=== PATIENT | female | born 1950 | race Caucasian/White ===

== ENCOUNTER 2022-08-26 06:26 | Day surgery (SDC) | payer MEDICARE ==
[2022-08-26] MEDS ORDERED: Sodium Chloride 0.9% 1,000 ML IV SCH (07:00)
[2022-08-26] MEDS ORDERED: Propofol 200 MG/20 ML SDV ONE ×2 (07:11→07:39)
[2022-08-26] MEDS ORDERED: fentaNYL 100 MCG/2 ML SDV ONE (07:11)
[2022-08-26] MEDS ORDERED: Citric Acid/Simethicone/Sodium Bicarbonate Granules 4 GM Packet PO ONE (11:24)
[2022-08-26] MEDS ORDERED: Barium Sulfate 98% Powder for Susp 340 GM Bottle PO PRN (11:24)
== END 2022-08-26 13:30 | disposition home or self-care (01) ==
LOC: JP.SDS 06:26
PROVIDERS: ATTEND Internal Medicine
DX: K59.89 Other specified functional intestinal disorders (principal); R10.9 Unspecified abdominal pain; K21.9 Gastro-esophageal reflux disease without esophagitis; Z87.19 Personal history of other diseases of the digestive system; Z91.041 Radiographic dye allergy status; Z88.8 Allergy status to other drugs, medicaments and biological substances
CPT/HCPCS: 45378; 74246; 74248; J2704; J3010; J7030

== ENCOUNTER 2022-09-30 08:51 | Inpatient (IN) | payer MEDICARE ==
[2022-09-30] MEDS ORDERED: fentaNYL 250 MCG/5 ML SDV ONE (08:52)
[2022-09-30] MEDS ORDERED: Glycopyrrolate 0.2 MG/ML 5 ML MDV ONE (08:52)
[2022-09-30] MEDS ORDERED: Dexamethasone 4 MG/ML SDV ONE (08:52)
[2022-09-30] MEDS ORDERED: Ondansetron 4 MG/2 ML SDV ONE (08:52)
[2022-09-30] MEDS ORDERED: Rocuronium 50 MG/5 ML Vial ONE (08:52)
[2022-09-30] MEDS ORDERED: Propofol 200 MG/20 ML SDV ONE (08:52)
[2022-09-30] MEDS ORDERED: Neostigmine Methylsulfate 1 MG/ML 5 ML Syringe ONE (08:52)
[2022-09-30] MEDS ORDERED: Naloxone 0.4 MG/ML SDV IVPUSH PRN (09:00)
[2022-09-30] MEDS ORDERED: fentaNYL 1,250 MCG in Sodium Chloride 0.9% 225 ML EPIDUR SCH (09:00)
[2022-09-30] MEDS ORDERED: Scopolamine 1.5 MG Transdermal Patch TOP SCH (09:15)
[2022-09-30] MEDS ORDERED: Dextrose 5%-Lactated Ringers 1,000 ML IV SCH ×2 (10:00→13:30)
[2022-09-30] MEDS ORDERED: Ketamine 500 MG/5 ML MDV IV SCH (10:30)
[2022-09-30] MEDS ORDERED: cefOXitin 2 GM in Sodium Chloride 0.9% 50 ML IV ONE (10:30)
[2022-09-30] MEDS ORDERED: Ketamine 16 MG in Sodium Chloride 0.9% 19.84 ML IV SCH (10:30)
[2022-09-30] MEDS ORDERED: Meropenem 500 MG SDV IRR ONE (11:24)
[2022-09-30] MEDS ORDERED: Linezolid 600 MG/300 ML Premix Bag IRR ONE (11:25)
[2022-09-30] MEDS ORDERED: Lactated Ringers 1,000 ML ONE (12:02)
[2022-09-30] MEDS ORDERED: Cyclobenzaprine 10 MG Tab PO PRN (13:35)
[2022-09-30] MEDS ORDERED: Pantoprazole 40 MG Vial IVPUSH SCH ×2 (13:45→16:00)
[2022-09-30] MEDS ORDERED: Meperidine PF 100 MG/ML Syringe IM ONE (13:49)
[2022-09-30] MEDS ORDERED: Acetaminophen 500 MG Tab PO PRN (14:00)
[2022-09-30] MEDS ORDERED: diphenhydrAMINE 50 MG/ML SDV IVPUSH PRN ×3 (14:00)
[2022-09-30] MEDS ORDERED: Labetalol 20 MG/4 ML Syringe IVPUSH PRN (14:00)
[2022-09-30] MEDS: hydrOXYzine HCl 50 MG/ML SDV IM PRN (15:24)
[2022-09-30] MEDS ORDERED: MVI, Adult with Vitamin K 10 ML, Thiamine 200 MG, Zinc/Copper/Manganese/Selenium 1 ML i... IV SCH ×4 (16:00)
[2022-09-30] MEDS ORDERED: fentaNYL 100 MCG/2 ML SDV ONE (17:06)
[2022-09-30] MEDS ORDERED: Sodium Chloride 0.9% 10 ML ONE (17:07)
[2022-09-30] MEDS: cefOXitin 2 GM in Sodium Chloride 0.9% 50 ML IV SCH ×2 (17:08→21:37)
[2022-09-30] MEDS: fentaNYL 2,500 MCG in Sodium Chloride 0.9% 200 ML EPIDUR SCH (17:38)
[2022-09-30] MEDS: Acetaminophen 500 MG Tab PO SCH (19:26)
[2022-09-30] MEDS: Ondansetron 4 MG/2 ML SDV IVPUSH PRN (21:42)
[2022-10-01] MEDS: Naloxone 0.4 MG/ML SDV IV PRN ×2 (00:15→08:15)
[2022-10-01] MEDS: Ondansetron 4 MG/2 ML SDV IVPUSH PRN ×2 (01:12→19:40)
[2022-10-01] MEDS: Metoclopramide 10 MG/2 ML SDV IVPUSH PRN ×2 (02:36→22:43)
[2022-10-01] MEDS ORDERED: Naloxone 0.4 MG/ML SDV IVPUSH ONE (03:02)
[2022-10-01] MEDS: hydrOXYzine HCl 50 MG/ML SDV IM PRN (03:08)
[2022-10-01] MEDS: Acetaminophen 500 MG Tab PO SCH ×4 (03:54→19:39)
[2022-10-01] MEDS: cefOXitin 2 GM in Sodium Chloride 0.9% 50 ML IV SCH ×4 (03:57→21:18)
[2022-10-01] MEDS ORDERED: Dextrose 5%-Lactated Ringers 1,000 ML IV SCH (07:00)
[2022-10-01] MEDS: Docusate Sodium 100 MG Cap PO SCH ×2 (09:07→21:18)
[2022-10-01] MEDS: Bisacodyl 5 MG Tab PO SCH ×2 (09:07→21:18)
[2022-10-01] MEDS: SCOPOLAMINE PATCH CHECK TOP SCH (09:09)
[2022-10-01] MEDS: fentaNYL 2,500 MCG in Sodium Chloride 0.9% 200 ML EPIDUR SCH (13:30)
[2022-10-01] MEDS ORDERED: Pantoprazole 40 MG Tab.CR PO SCH (16:30)
[2022-10-01] MEDS: Naloxone 0.4 MG in Dextrose 5%-Lactated Ringers 1,000 ML IV SCH (18:41)
[2022-10-02] MEDS: Ondansetron 4 MG/2 ML SDV IVPUSH PRN (02:24)
[2022-10-02] MEDS: LORazepam 2 MG/ML SDV IVPUSH PRN ×2 (03:22→21:38)
[2022-10-02] MEDS: Naloxone 0.4 MG in Dextrose 5%-Lactated Ringers 1,000 ML IV SCH ×2 (05:33→14:45)
[2022-10-02] MEDS: Acetaminophen 500 MG Tab PO SCH ×3 (05:58→19:39)
[2022-10-02] MEDS ORDERED: Metoclopramide 10 MG/2 ML SDV IVPUSH SCH (07:00)
[2022-10-02] MEDS ORDERED: Ondansetron 4 MG/2 ML SDV IVPUSH SCH (07:00)
[2022-10-02 07:07] LABS: HEMOGLOBIN 10.2 g/dL (11.2-15.5); MEAN CORPUSCULAR HEMOGLOBIN 31.1 pg (31.6-35.5); MEAN CORPUSCULAR VOLUME 91.5 fL (81.4-99.0); RED BLOOD CELL COUNT 3.28 M/uL (3.77-5.24); WHITE BLOOD CELL COUNT,WBC 10.7 K/uL (3.2-11.0)
[2022-10-02 07:29] LABS: ALANINE AMINOTRANSFERASE,ALT 17 U/L (12-78); ALBUMIN 2.6 g/dL (3.4-5.0); ALKALINE PHOSPHATASE 57 U/L (46-116); ASPARTATE AMNIOTRANSFERASE,AST 19 U/L (15-37); BILIRUBIN TOTAL 0.3 mg/dL (0.2-1.0); BLOOD UREA NITROGEN,BUN 6 mg/dL (7-18); CALCIUM 7.8 mg/dL (8.5-10.1); CARBON DIOXIDE,CO2 33 mmol/L (21-32); CHLORIDE,CL 97 mmol/L (100-108); CREATININE 0.6 mg/dL (0.6-1.0); EST CRCL DRUG DOSING (CG) 72.63 mL/min; ESTIMATED GFR 95 mL/min (>60); GLUCOSE RANDOM 128 mg/dL (74-106); MAGNESIUM 1.5 mg/dL (1.8-2.4); PHOSPHORUS 2.3 mg/dL (2.5-4.9); POTASSIUM,K 4.6 mmol/L (3.6-5.2); PROTEIN TOTAL,TP 5.3 g/dL (6.4-8.2); SODIUM,NA 132 mmol/L (140-148)
[2022-10-02 07:30] LABS: ANION GAP 6.6 mmol/L (5.0-14.0)
[2022-10-02] MEDS: Metoclopramide 10 MG/2 ML SDV IVPUSH SCH ×3 (08:32→20:58)
[2022-10-02] MEDS: Bisacodyl 5 MG Tab PO SCH ×2 (08:33→20:59)
[2022-10-02] MEDS: Docusate Sodium 100 MG Cap PO SCH ×2 (08:33→20:58)
[2022-10-02] MEDS: SCOPOLAMINE PATCH CHECK TOP SCH (08:34)
[2022-10-02] MEDS ORDERED: Cyanocobalamin (Vitamin B12) 1,000 MCG/ML SDV IM ONE (09:00)
[2022-10-02] MEDS: Ondansetron 4 MG/2 ML SDV IVPUSH SCH ×4 (11:40→23:17)
[2022-10-02] MEDS: Magnesium Sulfate/Water 2 GM in Premix Bag 1 BAG IV SCH ×3 (11:41→23:17)
[2022-10-02 13:56] LABS: HEMATOCRIT 29.3 % (34.3-46.0); HEMOGLOBIN 9.9 g/dL (11.2-15.5); MEAN CORPUSCULAR HEMOGLOBIN 30.6 pg (31.6-35.5); MEAN CORPUSCULAR HGB CONC 33.8 g/dL (31.6-35.5); MEAN CORPUSCULAR VOLUME 90.4 fL (81.4-99.0); RED BLOOD CELL COUNT 3.24 M/uL (3.77-5.24); WHITE BLOOD CELL COUNT,WBC 10.1 K/uL (3.2-11.0)
[2022-10-02] MEDS ORDERED: Tranexamic Acid 1,000 MG in Sodium Chloride 0.9% 50 ML IV ONE (14:45)
[2022-10-02] MEDS: fentaNYL 2,500 MCG in Sodium Chloride 0.9% 200 ML EPIDUR SCH (15:35)
[2022-10-02] MEDS: Pantoprazole 40 MG Vial IVPUSH SCH (15:57)
[2022-10-03] MEDS: Naloxone 0.4 MG in Dextrose 5%-Lactated Ringers 1,000 ML IV SCH (01:07)
[2022-10-03] MEDS: Metoclopramide 10 MG/2 ML SDV IVPUSH SCH ×5 (01:09→20:12)
[2022-10-03] MEDS: Ondansetron 4 MG/2 ML SDV IVPUSH SCH ×6 (02:42→23:16)
[2022-10-03 04:46] LABS: HEMATOCRIT 29.4 % (34.3-46.0); HEMOGLOBIN 9.9 g/dL (11.2-15.5); MEAN CORPUSCULAR HEMOGLOBIN 30.5 pg (31.6-35.5); MEAN CORPUSCULAR HGB CONC 33.7 g/dL (31.6-35.5); MEAN CORPUSCULAR VOLUME 90.5 fL (81.4-99.0); RED BLOOD CELL COUNT 3.25 M/uL (3.77-5.24); WHITE BLOOD CELL COUNT,WBC 7.7 K/uL (3.2-11.0)
[2022-10-03] MEDS: LORazepam 2 MG/ML SDV IVPUSH PRN (04:55)
[2022-10-03] MEDS: Acetaminophen 500 MG Tab PO SCH ×3 (05:00→20:12)
[2022-10-03 05:09] LABS: A/G RATIO 0.9 (1.2-2.2); ALANINE AMINOTRANSFERASE,ALT 21 U/L (12-78); ALBUMIN 2.5 g/dL (3.4-5.0); ALKALINE PHOSPHATASE 61 U/L (46-116); ASPARTATE AMNIOTRANSFERASE,AST 22 U/L (15-37); BILIRUBIN TOTAL 0.3 mg/dL (0.2-1.0); BLOOD UREA NITROGEN,BUN 4 mg/dL (7-18); CALCIUM 7.3 mg/dL (8.5-10.1); CARBON DIOXIDE,CO2 33 mmol/L (21-32); CHLORIDE,CL 95 mmol/L (100-108); CREATININE 0.6 mg/dL (0.6-1.0); EST CRCL DRUG DOSING (CG) 72.63 mL/min; ESTIMATED GFR 95 mL/min (>60); GLUCOSE RANDOM 133 mg/dL (74-106); MAGNESIUM 2.5 mg/dL (1.8-2.4); PHOSPHORUS 2.2 mg/dL (2.5-4.9); POTASSIUM,K 3.8 mmol/L (3.6-5.2); PROTEIN TOTAL,TP 5.3 g/dL (6.4-8.2); SODIUM,NA 131 mmol/L (140-148)
[2022-10-03 05:10] LABS: ANION GAP 6.8 mmol/L (5.0-14.0)
[2022-10-03] MEDS: Magnesium Sulfate/Water 2 GM in Premix Bag 1 BAG IV SCH ×4 (05:30→23:11)
[2022-10-03] MEDS ORDERED: Lidocaine 1% with EPINEPHrine 1:100,000 50 ML MDV ONE (06:42)
[2022-10-03] MEDS ORDERED: Meropenem 500 MG SDV ONE (06:42)
[2022-10-03] MEDS ORDERED: Bupivacaine 0.5% 50 ML MDV ONE (06:42)
[2022-10-03] MEDS ORDERED: Propofol 200 MG/20 ML SDV ONE (07:27)
[2022-10-03] MEDS ORDERED: Ropivacaine 28 ML, dexAMETHasone 8 MG, EPINEPHrine 0.4 MG, Sodium Chloride 0.9% 49.6 ML NERVRT SCH ×4 (07:30)
[2022-10-03] MEDS ORDERED: Ondansetron 4 MG/2 ML SDV ONE (07:31)
[2022-10-03] MEDS ORDERED: Ketorolac 30 MG/ML SDV ONE (07:34)
[2022-10-03] MEDS ORDERED: traMADol 50 MG Tab PO PRN (09:06)
[2022-10-03] MEDS ORDERED: Bupivacaine 0.5% 50 ML MDV INJECT ONE (09:10)
[2022-10-03] MEDS ORDERED: Lidocaine 1% with EPINEPHrine 1:100,000 50 ML MDV INJECT ONE (09:10)
[2022-10-03] MEDS ORDERED: Dextrose 5%-Lactated Ringers 1,000 ML IV SCH (09:15)
[2022-10-03] MEDS: Potassium Phos in 0.9 % NaCl 15 MMOL in Premix Bag 1 BAG IV SCH ×8 (10:45→20:10)
[2022-10-03] MEDS: Bisacodyl 5 MG Tab PO SCH ×2 (10:45→20:12)
[2022-10-03] MEDS: Celecoxib 200 MG Cap PO SCH ×2 (10:45→20:12)
[2022-10-03] MEDS: Docusate Sodium 100 MG Cap PO SCH ×2 (10:46→20:12)
[2022-10-03] MEDS: Pantoprazole 40 MG Vial IVPUSH SCH (17:01)
[2022-10-04] MEDS: Metoclopramide 10 MG/2 ML SDV IVPUSH SCH ×2 (04:44→07:25)
[2022-10-04] MEDS: Acetaminophen 500 MG Tab PO SCH (04:49)
[2022-10-04 04:52] LABS: BASOPHILS PERCENT AUTO 0.1 % (0.1-1.3); EOSINOPHILS PERCENT AUTO 0.2 % (0.0-5.4); HEMATOCRIT 26.3 % (34.3-46.0); HEMOGLOBIN 8.9 g/dL (11.2-15.5); IMMATURE GRAN ABSOLUTE AUTO 0.03 K/uL (0.00-0.23); IMMATURE GRAN PERCENT AUTO 0.4 % (0.0-0.7); LYMPHOCYTES ABSOLUTE AUTO 0.87 K/uL (0.8-3.3); LYMPHOCYTES PERCENT AUTO 10.2 % (11.4-47.7); MEAN CORPUSCULAR HEMOGLOBIN 30.5 pg (31.6-35.5); MEAN CORPUSCULAR HGB CONC 33.8 g/dL (31.6-35.5); MEAN CORPUSCULAR VOLUME 90.1 fL (81.4-99.0); MONOCYTES ABSOLUTE AUTO 0.88 K/uL (0.20-0.90); MONOCYTES PERCENT AUTO 10.3 % (3.3-12.6); NEUTROPHILS ABSOLUTE AUTO 6.72 K/uL (1.0-7.6); NEUTROPHILS PERCENT AUTO 78.8 % (40.0-78.1); PLATELET COUNT,PLT 226 K/uL (130-375); RED BLOOD CELL COUNT 2.92 M/uL (3.77-5.24); WHITE BLOOD CELL COUNT,WBC 8.5 K/uL (3.2-11.0)
[2022-10-04 05:13] LABS: BASOPHILS ABSOLUTE AUTO 0.01 K/uL (0.00-0.10); EOSINOPHILS ABSOLUTE AUTO 0.02 K/uL (0.00-0.40)
[2022-10-04] MEDS: Ondansetron 4 MG/2 ML SDV IVPUSH SCH ×2 (05:21→07:25)
[2022-10-04 05:22] LABS: A/G RATIO 0.9 (1.2-2.2); ALANINE AMINOTRANSFERASE,ALT 18 U/L (12-78); ALBUMIN 2.3 g/dL (3.4-5.0); ALKALINE PHOSPHATASE 55 U/L (46-116); ASPARTATE AMNIOTRANSFERASE,AST 20 U/L (15-37); BILIRUBIN TOTAL 0.4 mg/dL (0.2-1.0); BLOOD UREA NITROGEN,BUN 8 mg/dL (7-18); CALCIUM 7.5 mg/dL (8.5-10.1); CARBON DIOXIDE,CO2 31 mmol/L (21-32); CHLORIDE,CL 104 mmol/L (100-108); CREATININE 0.5 mg/dL (0.6-1.0); EST CRCL DRUG DOSING (CG) 87.16 mL/min; ESTIMATED GFR 99 mL/min (>60); GLUCOSE RANDOM 89 mg/dL (74-106); MAGNESIUM 2.8 mg/dL (1.8-2.4); PHOSPHORUS 2.5 mg/dL (2.5-4.9); POTASSIUM,K 3.6 mmol/L (3.6-5.2); PRO B-TYPE NATRIUR PEPT,BNPPRO 594 pg/mL (5-125); PROTEIN TOTAL,TP 4.9 g/dL (6.4-8.2); SODIUM,NA 137 mmol/L (140-148)
[2022-10-04] MEDS: Magnesium Sulfate/Water 2 GM in Premix Bag 1 BAG IV SCH (05:23)
[2022-10-04 05:26] LABS: ANION GAP 5.6 mmol/L (5.0-14.0)
[2022-10-04] MEDS: Celecoxib 200 MG Cap PO SCH (08:37)
[2022-10-06 23:07] LABS: 5-HIAA, URINE 1.7 mg/L (Undefined)
== END 2022-10-04 08:55 | disposition home or self-care (01) | DRG 828 ==
LOC: JP.SDSSCHI 08:51 → JP.MS 12:10
PROVIDERS: ADMIT Surgery; ATTEND Surgery
PROC: 0DTF0ZZ Resection of Right Large Intestine, Open Approach (ICD-10-PCS; principal; 2022-09-30)
PROC: 0DB80ZZ Excision of Small Intestine, Open Approach (ICD-10-PCS; 2022-09-30)
PROC: 0DBW0ZZ Excision of Peritoneum, Open Approach (ICD-10-PCS; 2022-09-30)
PROC: 3E0M05Z Introduction of Adhesion Barrier into Peritoneal Cavity, Open Approach (ICD-10-PCS; 2022-09-30)
PROC: 0WQF0ZZ Repair Abdominal Wall, Open Approach (ICD-10-PCS; 2022-10-03)
DX: D3A.8 Other benign neuroendocrine tumors (principal); K66.9 Disorder of peritoneum, unspecified
CPT/HCPCS: 36415; 74018; 74019; 74019-26; 80053; 82378; 83497; 83735; 83880; 84100; 85018; 85025; 85027; 86316; 88305; 88309; 88341; 88342; A9270-GY; C9113; J0131; J0171; J0694; J1100; J1885; J2020; J2060; J2175; J2185; J2310; J2405; J2704; J2710; J2765; J2795; J3010; J3410; J3411; J3420; J3475; J3490; J7050; J7120; J7121

== ENCOUNTER 2022-10-05 15:03 | Emergency (ER) | payer MEDICARE | END 2022-10-05 16:20 | disposition home or self-care (01) | LOC: JP.ED 15:03 | DX: R05.1 Acute cough (principal); Z88.8 Allergy status to other drugs, medicaments and biological substances; Z91.041 Radiographic dye allergy status; Z79.899 Other long term (current) drug therapy | CPT/HCPCS: 99283 ==

== ENCOUNTER 2024-05-17 06:49 | Day surgery (SDC) | payer MEDICARE ==
[2024-05-17] MEDS ORDERED: fentaNYL 50 MCG/ML SDV ONE (07:12)
[2024-05-17] MEDS ORDERED: Propofol 200 MG/20 ML SDV ONE (07:12)
[2024-05-17] MEDS ORDERED: Lactated Ringers 1,000 ML IV SCH (07:30)
== END 2024-05-17 09:10 ==
LOC: JP.SDS 06:49
PROVIDERS: ATTEND Internal Medicine
DX: K57.30 Diverticulosis of large intestine without perforation or abscess without bleeding (principal); R19.4 Change in bowel habit; Z90.49 Acquired absence of other specified parts of digestive tract
CPT/HCPCS: G0121; J2704; J3010